=== PATIENT | male | born 1975 | race Caucasian/White ===

== ENCOUNTER 2021-04-16 16:40 | Emergency (ER) | payer BC, SELFPAY ==
[2021-04-16 16:49] VITALS: BP 157/85; PULSE 74; RESP 20; TEMP 37.3; O2SAT 98
--- NOTE | 2021-04-16 17:09 | ED.EYEPROB ---
HPI - Eye Problem General Chief complaint: Eye Problems Stated complaint: Both swollen Eyes Time Seen by Provider: 04/16/21 16:43 Source: patient and family ( ) Limitations: no limitations History of Present Illness HPI Narrative: 46-year-old male presents to [facility] with complaints of redness and swelling surrounding bilateral eyes since last night. Patient denies purulent drainage or matting. Patient denies injury to his eyes. Patient does not wear contacts or glasses. 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 chief complaint: other (redness and swelling around bilateral eyes) Onset (ago): day(s) (1) Location: both eyes Related Data Allergies Allergy/AdvReac Type Severity Reaction Status Date / Time No Known Allergies Allergy Verified 04/16/21 16:57 Review of Systems Constitutional: Constitutional: Denies chills, Denies fatigue, Denies fever(s) and Denies weakness Eyes: Comments: Erythema and swelling surrounding bilateral eyes Cardiovascular: Cardiovascular: Denies chest pain, Denies rapid heart rate, Denies radiating jaw, neck or arm pain and Denies slow heart rate Respiratory: Respiratory: Denies chest congestion, Denies cough, Denies dyspnea and Denies wheezing Gastrointestinal: Gastrointestinal: Denies abdominal pain, Denies bloating, Denies constipation, Denies diarrhea, Denies nausea and Denies vomiting Integumentary/Breasts: Skin/Breast: Reports rash Neurologic: Denies dizziness PMFSH Social History Social History Gender identity (if verbalized by the patient): Male Comments At time of signature, I agree with nursing past medical, surgical, social and family history. There is no relevant family history pertinent to the presenting complaint. Exam Const: General: healthy appearing and no acute distress Orientation/consciousness: patient oriented x3 Eyes: Conjunctivae: conjunctivae normal Pupils: Equal, round and reactive pupils present Direct Ophthalmoscopy: no photophobia Other: Erythema and mild swelling noted surrounding bilateral right and left eyes to upper and lower eyelids. Symptoms likely represent dermatitis. Conjunctive is normal. There is no tearing or drainage noted. Neck: Neck: normal visual inspection Resp: Effort & Inspection: normal respiratory effort and tachypneic Auscultation: clear to auscultation bilaterally Cardio: Rate: regular rate, not bradycardic and not tachycardic Rhythm: regular rhythm Skin: General skin exam: normal color Wounds: no wounds Other: Dry excoriated erythematous macular papular rash noted to bilateral forearms. Skin appears dry. There is no purulent drainage, streaking erythema or signs of infection noted Neuro: General: patient oriented x3 and moves all extremities Psych: Appearance: grossly normal Mental Status: mental status grossly normal Affect: normal affect Thought content: Yes Normal thought content present Course Vital Signs Vital signs: Vital Signs Temperature 37.3 C 04/16/21 16:49 Pulse Rate 74 04/16/21 16:49 Respiratory Rate 20 04/16/21 16:49 Blood Pressure 157/85 H 04/16/21 16:49 Pulse Oximetry 98 04/16/21 16:49 Temperature 37.3 C 04/16/21 16:49 Pulse Rate 74 04/16/21 16:49 Respiratory Rate 20 04/16/21 16:49 Blood Pressure 157/85 H 04/16/21 16:49 Pulse Oximetry 98 04/16/21 16:49 MDM - Eye Problem MDM Narrative Medical decision making narrative: We will start patient on Claritin daily. Patient agrees to take prednisone as prescribed. Patient agrees to apply thin layer of triamcinolone ointment to area of rash to his bilateral arms. 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
== END 2021-04-16 17:20 | disposition home or self-care (01) ==
PROVIDERS: Emergency Provider Nurse Practitioner Family; PCP Nurse Practitioner Family
DX: L30.9 Dermatitis, unspecified (principal)
CPT/HCPCS: 99213; G0463